=== PATIENT | female | born 1955 | race Caucasian/White ===

== ENCOUNTER 2017-10-12 12:47 | Emergency (ER) | payer OTHER ==
[2017-10-12] MEDS ORDERED: PREDNISONE 20 MG TABLET PO ONE (13:38)
[2017-10-12] MEDS ORDERED: IPRATROPIUM/ALBUTEROL 0.5-2.5 MG/3 ML AMPUL NEB ONE (13:38)
--- NOTE | 2017-10-12 13:39 | ER Document Report ---
HPI - HPI Patient complains to provider of: Cough Onset: Other - 10 days Onset/Duration: Persistent Quality of pain: No pain Pain Level: 0 Context: Patient complains of nonproductive cough for the past 10 days. Patient reports clear nasal drainage. Patient denies any fever. Patient denies any nausea, vomiting or diarrhea. Associated Symptoms: Nonproductive cough, Rhinnorhea. denies: Fever Exacerbated by: Denies Relieved by: Denies Similar symptoms previously: Yes Recently seen / treated by doctor: No - ROS ROS below otherwise negative: Yes Systems Reviewed and Negative: Yes All other systems reviewed and negative - CONSTITUTIONAL Constitutional: DENIES: Fever - EENT EENT: REPORTS: Nasal Drainage-Clear, Congestion - RESPIRATORY Respiratory: REPORTS: Coughing - GASTROINTESTINAL Gastrointestinal: DENIES: Nausea, Patient vomiting, Diarrhea - DERM Skin Color: Normal Skin Problems: None Past Medical History - General Information source: Patient - Social History Smoking Status: Never Smoker Frequency of alcohol use: None Drug Abuse: None Family History: Reviewed & Not Pertinent Pulmonary Medical History: Reports: Hx Asthma EENT Medical History: Reports: Other - Allergies Neurological Medical History: Reports: Hx Migraine Past Surgical History: Reports: Hx Hysterectomy, Hx Orthopedic Surgery Vertical Provider Document - CONSTITUTIONAL Agree With Documented VS: Yes Exam Limitations: No Limitations General Appearance: WD/WN, No Apparent Distress - HEENT HEENT: Atraumatic, Normocephalic. negative: Pharyngeal Exudate, Pharyngeal Tenderness, Pharyngeal Erythema, Tympanic Membrane Red, Tympanic Membrane Bulging Notes: Clear rhinorrhea,+ postnasal drip - NECK Neck: Normal Inspection, Supple. negative: Lymphadenopathy-Left, Lymphadenopathy-Right - RESPIRATORY Respiratory: No Respiratory Distress, Chest Non-Tender, Rhonchi, Wheezing O2 Sat by Pulse Oximetry: 95 - CARDIOVASCULAR Cardiovascular: Regular Rate, Regular Rhythm, No Murmur - BACK Back: Normal Inspection - MUSCULOSKELETAL/EXTREMETIES Musculoskeletal/Extremeties: JARRELL DALTON - NEURO Level of Consciousness: Awake, Alert, Appropriate Motor/Sensory: No Motor Deficit - DERM Integumentary: Warm, Dry, No Rash Course - Re-evaluation Re-evalutation: 10/12/17 Respirations even, unlabored. Patient with decreased wheezing. Discussed worsening symptoms that patient should return immediately for. Patient verbalized understanding and agrees with plan of care. - Vital Signs Vital signs: Temp Pulse Resp BP Pulse Ox 98.8 F 88 20 145/82 H 95 10/12/17 12:57 10/12/17 12:57 10/12/17 12:57 10/12/17 12:57 10/12/17 12:57 - Diagnostic Test Radiology reviewed: Reports reviewed Discharge - Discharge Clinical Impression: History of asthma, Wheezing Upper respiratory infection Qualifiers: URI type: unspecified URI Qualified Code(s): J06.9 - Acute upper respiratory infection, unspecified Condition: Stable Disposition: HOME, SELF-CARE Additional Instructions: Return immediately for any new or worsening symptoms Followup with your primary care provider, call tomorrow to make a followup appointment Use your albuterol inhaler that you have at home as prescribed UPPER RESPIRATORY ILLNESS: You have a viral infection of the respiratory passages -- a "cold." This common infection causes nasal congestion, drainage, and often sore throat and cough. It is highly contagious. The disease usually lasts about 10 to 14 days. There is no "cure" for the viral infection -- it must run its course. If there is a complication, such as bacterial infection in the nose, sinuses, middle ear, or bronchial tubes, antibiotics may be required. The antibiotics won't affect the virus. Drink plenty of fluids. A humidifier may help. An expectorant medication or decongestant may make you more comfortable. Use acetaminophen or ibuprofen for fever or aches. See the doctor if fever persists over two days, if there is any significant worsening of your symptoms, or if you simply fail to improve as expected. BRONCHOSPASM: You have tightness in the bronchial tubes, called bronchospasm. This often occurs with bronchial infections. Allergies, inhaled chemicals, and polluted or cold air can also provoke bronchospasm. It's more likely in patients with asthma in the family. Emergency treatment of bronchospasm may include adrenaline shots or bronchodilator aerosol. You may feel lightheaded and have a rapid pulse for an hour or two. Rest and get plenty of fluids. At home, we'll treat you with a bronchodilator inhaler. Antibiotics and corticosteroids may be required for some patients. Until you recover, avoid chemical fumes, dusts, pollens, and exercising in very cold or dry air. If you smoke, stop now!! If you develop a fever, increased wheezing, chest pain, or severe shortness of breath, you should contact the doctor immediately. INHALED BRONCHODILATORS: You have received a treatment of and/or prescription for an inhaled bronchodilator -- a medication which stimulates the airways in the lung to dilate. This improves the flow of air in asthma, bronchitis, and emphysema. These medicines have some similarity to adrenaline, and can cause similar side effects: shakiness, racing heart, and a sense of nervousness. These side effects decrease with time. Contact your doctor if these side effects are severe. Do not over-use the medicine. Too-frequent use of the inhaler may make it ineffective. Call your doctor if the inhaler is not controlling your symptoms at the prescribed doses. STEROID MEDICATION: You have been given an injection of or oral medicine of the cortisone/ steroid class. This medication is used to control inflammation or allergy. Stevan t is usually only given for a short period of time, until the acute process subsides. There are usually no side effects from short-term use of cortisone-like medications. Some persons feel an increased sense of well-being and are not sleepy at bedtime. Long-term use of cortisone medications is best avoided, unless required for a severe condition. If your condition does not remit, or relapses after the course of corticosteroid medication, you should consult your physician. USE OF ACETAMINOPHEN (Tylenol): Acetaminophen may be taken for pain relief or fever control. It's much safer than aspirin, offering a wider range of "safe" dosages. It is safe during . Some brand names are Tylenol, Panadol, Datril, Anacin 3, Tempra, and Liquiprin. Acetaminophen can be repeated every four hours. The following are maximum recommended dosages: >89 pounds or adults 650 mg to 900 mg Acetaminophen can be repeated every four hours. Maximum dose not to exceed 4000 mg a day. FOLLOW-UP CARE: If you have been referred to a physician for follow-up care, call the physician s office for an appointment as you were instructed or within the next two days. If you experience worsening or a significant change in your symptoms, notify the physician immediately or return to the Emergency Department at any time for re-evaluation. Prescriptions: Benzonatate [Tessalon Perle 100 mg Capsule] 100 mg PO Q8HP PRN #20 cap PRN Reason: Prednisone [Deltasone 20 mg Tablet] 3 tab PO DAILY 4 Days tablet Referrals: [facility] [Provider Group] - Follow up as needed
--- NOTE | 2017-10-12 14:21 | RADIOLOGY REPORT (SQ) ---
EXAM DESCRIPTION: CHEST PA/LAT COMPLETED DATE/TIME: 10/12/2017 2:13 pm REASON FOR STUDY: cough COMPARISON: None. EXAM PARAMETERS: NUMBER OF VIEWS: two views TECHNIQUE: Digital Frontal and Lateral radiographic views of the chest acquired. RADIATION DOSE: NA LIMITATIONS: none FINDINGS: LUNGS AND PLEURA: No opacities, masses or pneumothorax. No pleural effusion. MEDIASTINUM AND HILAR STRUCTURES: No masses or contour abnormalities. HEART AND VASCULAR STRUCTURES: Heart normal size. No evidence for failure. BONES: No acute findings. HARDWARE: None in the chest. OTHER: No other significant finding. IMPRESSION: NO SIGNIFICANT RADIOGRAPHIC FINDING IN THE CHEST. TECHNICAL DOCUMENTATION: JOB ID: [id number] [employer]- All Rights Reserved
[2017-10-12 15:42] VITALS: BP 129/66
== END 2017-10-12 15:42 | disposition home or self-care (01) ==
LOC: ER 12:47
DX: J06.9 Acute upper respiratory infection, unspecified (principal); R06.2 Wheezing; R05 Cough; R09.89 Other specified symptoms and signs involving the circulatory and respiratory systems
CPT/HCPCS: 94640; 99283; 71020; J7512; J7620

== ENCOUNTER 2017-10-16 10:28 | Emergency (ER) | payer OTHER ==
[2017-10-16] MEDS ORDERED: ALBUTEROL SULFATE 0.083% NEB 2.5 MG/3 ML AMPUL NEB ONE (10:56)
[2017-10-16 11:43] LABS: HEMATOCRIT 42.7 % (36.0-47.0); HEMOGLOBIN 14.6 g/dL (12.0-15.5); HGB HCT DIFFERENCE 1.1; MEAN CORPUSCULAR HEMOGLOBIN 28.9 pg (27.0-33.4); MEAN CORPUSCULAR HGB CONC 34.2 g/dL (32.0-36.0); MEAN CORPUSCULAR VOLUME 85 fl (80-97); RED BLOOD COUNT 5.04 10^6/uL (3.72-5.28); RED CELL DISTRIBUTION WIDTH 14.8 % (11.5-14.0)
[2017-10-16 11:59] LABS: ALANINE AMINOTRANSFERASE 58 U/L (9-52); ALBUMIN 4.5 g/dL (3.5-5.0); ALKALINE PHOSPHATASE 154 U/L (38-126); ANION GAP 15 (5-19); ASPARTATE AMINO TRANSFERASE 35 U/L (14-36); BILIRUBIN,DIRECT 0.3 mg/dL (0.0-0.4); BILIRUBIN,TOTAL 0.5 mg/dL (0.2-1.3); BLOOD UREA NITROGEN 17 mg/dL (7-20); CARBON DIOXIDE 29 mmol/L (22-30); CHLORIDE 100 mmol/L (98-107); CREATININE RESULT 0.82 mg/dL (0.52-1.25); GLUCOSE 96 mg/dL (75-110); SODIUM 143.8 mmol/L (137-145); TOTAL PROTEIN 7.1 g/dL (6.3-8.2)
[2017-10-16 12:02] LABS: BASOPHILS % (MANUAL) 0 % (0-2); EOSINOPHILS % (MANUAL) 0 % (0-6); LYMPHOCYTES % (MANUAL) 6 % (13-45); TOTAL CELLS COUNTED 100
[2017-10-16 12:03] LABS: ANISOCYTOSIS SLIGHT
--- NOTE | 2017-10-16 12:57 | RADIOLOGY REPORT (SQ) ---
EXAM DESCRIPTION: CHEST PA/LAT COMPLETED DATE/TIME: 10/16/2017 12:37 pm REASON FOR STUDY: cough COMPARISON: 10/12/2017 EXAM PARAMETERS: NUMBER OF VIEWS: two views TECHNIQUE: Digital Frontal and Lateral radiographic views of the chest acquired. RADIATION DOSE: NA LIMITATIONS: none FINDINGS: LUNGS AND PLEURA: No opacities, masses or pneumothorax. No pleural effusion. MEDIASTINUM AND HILAR STRUCTURES: No masses or contour abnormalities. HEART AND VASCULAR STRUCTURES: Heart normal size. No evidence for failure. BONES: No acute findings. HARDWARE: None in the chest. OTHER: No other significant finding. IMPRESSION: NO ACUTE RADIOGRAPHIC FINDING IN THE CHEST. TECHNICAL DOCUMENTATION: JOB ID: [id number] [employer]- All Rights Reserved
--- NOTE | 2017-10-16 13:18 | ER Document Report ---
ED General - General Chief Complaint: Cough Stated Complaint: COUGH Time Seen by Provider: 10/16/17 10:56 Mode of Arrival: Ambulatory Information source: Patient Notes: Patient presents with cough congestion and hoarse voice. She states that she was seen here approximately 4-5 days ago. She was treated at that time with Tessalon Perles and prednisone. She states that she does not feel any better. She has a mild shortness of breath. Some mild diffuse chest pressure. Nothing makes it better. Exertion makes it worse. There is no radiation symptoms. Symptoms are constant moderate. No vomiting or diarrhea. TRAVEL OUTSIDE OF THE [place] IN LAST 30 DAYS: No - Related Data Allergies/Adverse Reactions: acebutolol [From Sectral] Allergy (Verified 10/16/17 10:28) moxifloxacin [From Avelox] Allergy (Verified 10/16/17 10:28) naproxen [From Aleve] Allergy (Verified 10/16/17 10:28) Home Medications: Current Home Medications Albuterol Sulfate [Proair HFA Inhalation Aerosol 8.5 gm MDI] 1 - 2 puff IH BID 10/16/17 [History] Calcium/FA/Multivits-Min [Viactiv Multi-Vitamin Soft Chew Tablet] 1 tab PO BID 10/16/17 [History] Diltiazem HCl [Diltiazem ER] 180 mg PO QAM 10/16/17 [History] Esomeprazole Magnesium 1 cap PO QAM 10/16/17 [History] Ferrous Sulfate [Iron] 1 tab PO QPM 10/16/17 [History] Fexofenadine HCl [Camila] 1 tab PO QAM 10/16/17 [History] Fluticasone Propionate [Flonase Allergy Relief] 1 spray IH QAM 10/16/17 [History ] Fluticasone/Salmeterol [Advair 250-50 Diskus 28 dose] 1 inh IH Q12H 10/16/17 [ History] Furosemide [Lasix 40 mg Tablet] 1 tab PO QAM 10/16/17 [History] Dchvdqfk-[id number]-Zpds 149-Hyal [Glucosamine Chondroitin Tablet] 1 tab PO BID 02/27 [History] Guaifenesin [Mucinex] 1 tab PO BID 10/16/17 [History] Multivit-Min/Iron/Folic/Lutein [Centrum Silver Women Tablet] 1 tab PO QAM [History] Potassium Chloride 1 tab PO QAM 10/16/17 [History] Propylene Glycol [Systane Balance] 1 drop BTH_EYE TID 10/16/17 [History] Sod Chlor,Bicarb/Squeez Bottle [Neilmed Sinus Rinse Kit] 1 applic NASL BID 10/16 [History] Past Medical History - General Information source: Patient - Social History Smoking Status: Never Smoker Frequency of alcohol use: None Drug Abuse: None Family History: Reviewed & Not Pertinent Patient has suicidal ideation: No Patient has homicidal ideation: No Pulmonary Medical History: Reports: Hx Asthma Neurological Medical History: Reports: Hx Migraine Renal/ Medical History: Denies: Hx Peritoneal Dialysis Past Surgical History: Reports: Hx Hysterectomy, Hx Orthopedic Surgery Review of Systems - Review of Systems Constitutional: Malaise, Weakness. denies: Chills, Fever Cardiovascular: Chest pain. denies: Palpitations Respiratory: Cough, Short of breath -: Yes All other systems reviewed and negative Physical Exam - Vital signs Vitals: Temp Pulse Resp BP Pulse Ox 98.3 F 74 15 142/77 H 96 10/16/17 10:35 10/16/17 10:35 10/16/17 10:35 10/16/17 10:35 10/16/17 10:35 Interpretation: Hypertensive - General General appearance: Appears well, Alert - HEENT Head: Normocephalic, Atraumatic Eyes: Normal Pupils: PERRL - Respiratory Respiratory status: No respiratory distress Chest status: Nontender Breath sounds: Normal Chest palpation: Normal - Cardiovascular Rhythm: Regular Heart sounds: Normal auscultation Murmur: No - Abdominal Inspection: Normal Distension: No distension Bowel sounds: Normal Tenderness: Nontender Organomegaly: No organomegaly - Back Back: Normal, Nontender - Extremities General upper extremity: Normal inspection, Nontender, Normal color, Normal ROM , Normal temperature General lower extremity: Normal inspection, Nontender, Normal color, Normal ROM , Normal temperature, Normal weight bearing. No: Michelle's sign - Neurological Neuro grossly intact: Yes Cognition: Normal Orientation: AAOx4 Rumford Coma Scale Eye Opening: Spontaneous Arely Coma Scale Verbal: Oriented Arely Coma Scale Motor: Obeys Commands Rumford Coma Scale Total: 15 Speech: Normal Motor strength normal: LUE, RUE, LLE, RLE Sensory: Normal - Psychological Associated symptoms: Normal affect, Normal mood - Skin Skin Temperature: Warm Skin Moisture: Dry Skin Color: Normal Course - Vital Signs Vital signs: Temp Pulse Resp BP Pulse Ox 98.3 F 74 15 142/77 H 96 10/16/17 10:35 10/16/17 10:35 10/16/17 10:35 10/16/17 10:35 10/16/17 10:35 - Laboratory Result Diagrams: 10/16/17 11:15 10/16/17 11:15 Laboratory results interpreted by me: 10/16/17 10/16/17 11:15 11:15 WBC 11.0 H RDW 14.8 H Seg Neuts % (Manual) 87 H Lymphocytes % (Manual) 6 L Abs Neuts (Manual) 9.6 H ALT 58 H Alkaline Phosphatase 154 H - Diagnostic Test Radiology reviewed: Image reviewed, Reports reviewed - I reviewed the chest x- ray and there is no evidence of infiltrate or edema. Discharge - Discharge Clinical Impression: URI (upper respiratory infection) Qualifiers: URI type: unspecified URI Qualified Code(s): J06.9 - Acute upper respiratory infection, unspecified Condition: Stable Disposition: HOME, SELF-CARE Instructions: Upper Respiratory Illness ([facility]) Additional Instructions: Your blood pressure is mildly elevated. Please have this rechecked within 1 week by your doctor. Prescriptions: Cefdinir 300 mg PO BID 7 Days #14 capsule Codeine/Promethazine HCl [Promethazine-Codeine Syrup] 10 ml PO Q4 PRN #1 bottle PRN Reason: Forms: Elevated Blood Pressure, Return to Work Referrals: JOE DIA MD [COMMUNITY BASED STAFF] - Follow up as needed
[2017-10-16 13:46] VITALS: BP 138/77
== END 2017-10-16 13:47 | disposition home or self-care (01) ==
LOC: ER 10:28
DX: J06.9 Acute upper respiratory infection, unspecified (principal); Z90.710 Acquired absence of both cervix and uterus; Z88.3 Allergy status to other anti-infective agents
CPT/HCPCS: 36415; 71020; 80053; 85025; 94640; 99284